=== PATIENT | male | born 1960 | race Two or more races ===

== ENCOUNTER 2023-01-12 19:15 | Emergency (ER) | payer OTHER, SELFPAY ==
[~2023-01-12] VITALS: Ht 170.2 cm; Wt 95.0 kg
[2023-01-12 19:49] LABS: HEMATOCRIT. 37.3 % (42.0-52.0); HEMOGLOBIN. 12.2 g/dL (14.0-18.0); MEAN CORPUSCULAR HEMOGLOBIN 29.1 pg (28.0-32.0); MEAN CORPUSCULAR VOLUME 89.1 fL (80.0-94.0); MEAN PLATELET VOLUME 9.1 fl (7.4-10.4); PLATELET 164 x1000/uL (130-400); RED BLOOD CELL COUNT 4.18 mill/uL (4.7-6.1); RED CELL DISTRIBUTION WIDTH 14.2 % (11.6-14.6)
[2023-01-12 19:55] LABS: CHLORIDE 105 mEq/L (98-107)
[2023-01-12 21:29] LABS: PLATELET ESTIMATE NORMAL
[2023-01-12 22:50] VITALS: BP 126/68
== END 2023-01-12 23:10 | disposition short-term general hospital (02) ==
LOC: ER 19:36
DX: R55 Syncope and collapse (principal)
CPT/HCPCS: 36415; 70450; 71045; 71275; 80053; 80307; 80329; 83880; 84484; 85025; 93005; 99291; Z7610